=== PATIENT | female | born 1960 | race Caucasian/White ===

== ENCOUNTER 2017-12-20 19:16 | Emergency (ER) | payer BC ==
[~2017-12-20] VITALS: Ht 157.5 cm; Wt 86.2 kg
[2017-12-20 20:09] LABS: ABSOLUTE EOSINOPHILS 0.4 thou/uL (0.0-0.7); ABSOLUTE LYMPHOCYTES 2.3 thou/uL (0.8-5.3); ABSOLUTE MONOCYTES 0.5 thou/uL (0.0-1.2); ABSOLUTE NEUTROPHILS 5.5 thou/uL (1.6-8.1); BASOPHILS 0.3 %; EOSINOPHILS 4.6 %; HEMATOCRIT 43.2 % (37.0-47.0); HEMOGLOBIN 14.3 gm/dL (12.0-15.0); LYMPHOCYTES 25.8 %; MCHC 33.1 g/dL (28.0-37.0); MCV 84.5 fL (80.0-100.0); MONOCYTES 6.1 %; MPV 8.3 fl. (7.2-11.1); NUCLEATED RBCS 0 /100WBC; PLATELET COUNT* 218 thou/uL (150-400); POLYS 63.2 %; RBC 5.11 mil/uL (4.20-5.00); RDW-CV 14.4 % (10.5-14.5); WBC 8.7 thou/uL (4.0-11.0)
[2017-12-20 20:21] LABS: ANION GAP 9 mmol/L (7-16); BUN 13 mg/dL (7-18); CALCIUM 8.7 mg/dL (8.5-10.1); CHLORIDE 106 mmol/L (98-107); CO2 26 mmol/L (21-32); CREATININE 0.7 mg/dL (0.6-1.3); GLUCOSE 114 mg/dL (70-99); POTASSIUM 3.8 mmol/L (3.5-5.1); SODIUM 141 mmol/L (136-145)
[2017-12-20 20:32] LABS: ALBUMIN 3.9 g/dL (3.4-5.0); ALKALINE PHOSPHATASE 90 U/L (46-116); NT-PRO BRAIN NAT PEPTIDE 39 pg/mL (<300); SGOT 50 U/L (15-37); SGPT 70 U/L (30-65); TOTAL BILIRUBIN 0.6 mg/dL (<0.1-1.0); TOTAL PROTEIN 7.9 g/dL (6.4-8.2); TROPONIN-I LEVEL <0.06 ng/mL (<0.06)
[2017-12-20 20:57] LABS: URINE BILIRUBIN NEGATIVE (Negative); URINE BLOOD 3+ (Negative); URINE CLARITY SL CLOUDY; URINE COLOR RED; URINE GLUCOSE-RANDOM NEGATIVE (Negative); URINE KETONES NEGATIVE (Negative); URINE NITRITE-REFLEX NEGATIVE (Negative); URINE PROTEIN 1+ (Negative); URINE UROBILINOGEN 0.2 E.U./dl (0.2-1.0)
[2017-12-20 20:58] LABS: URINE LEUKOCYTES-REFLEX 2+ (Negative)
[2017-12-20 21:05] LABS: BACTERIA-REFLEX 1-9 Few /HPF (None Seen); CASTS None Seen /LPF (None Seen); CRYSTALS None Seen /LPF (None Seen); SQUAMOUS 0-3 Few /LPF (0-3); URINE RBC >20 Many /HPF (0-2); URINE WBC-REFLEX 0-5 Rare /HPF (0-5)
[2017-12-20] MEDS ORDERED: BYSTOLIC 5 MG5 M1 PO (21:08)
[2017-12-20 21:28] VITALS: BP 164/75
[2017-12-21 11:07] LABS: T3 UPTAKE 24 % (24-39)
--- NOTE | 2017-12-21 14:55 | EKG ---
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1960 Requested By: Jean Rodriguez Order Number: [id number] MD: Demond Bullock Measurements Intervals [place] Rate: 95 P: 31 MO: 172 QRS: -7 QRSD: 87 T: 35 QT: 385 QTc: 484 Interpretive Statements Sinus rhythm Probable left atrial enlargement Abnormal R-wave progression, early transition Left ventricular hypertrophy Borderline prolonged QT interval No previous ECG available for comparison Electronically Signed On 12-21-2017 14:54:51 CDT by Demond Bullock [email or web address] <ELECTRONICALLY SIGNED> By: Demond Bullock MD, [facility] 12/21/17 1454 40 40 Demond Bullock MD, FACC /EPI
== END 2017-12-20 21:29 | disposition home or self-care (01) ==
LOC: M.ERS 19:16
PROVIDERS: Emergency Medicine
DX: I10 Essential (primary) hypertension (principal); N39.0 Urinary tract infection, site not specified; Z88.8 Allergy status to other drugs, medicaments and biological substances; Z90.49 Acquired absence of other specified parts of digestive tract

== ENCOUNTER 2019-04-24 00:48 | Emergency (ER) | payer BC ==
[~2019-04-24] VITALS: Ht 160 cm; Wt 104.3 kg
[~2019-04-24 00:48] MED LIST: BYSTOLIC 5 MG5 M1 PO
[2019-04-24 01:33] LABS: HEMATOCRIT 42.4 % (37.0-47.0); HEMOGLOBIN 14.3 gm/dL (12.0-15.0); MCH 28.4 pg (26.0-34.0); MCHC 33.6 g/dL (28.0-37.0); MCV 84.5 fL (80.0-100.0); MPV 8.6 fl. (7.2-11.1); NUCLEATED RBCS 0 /100WBC; PLATELET COUNT* 248 thou/uL (150-400); RBC 5.02 mil/uL (4.20-5.00); WBC 11.5 thou/uL (4.0-11.0)
[2019-04-24] MEDS ORDERED: PROAIR HFA8.5 GM INH (01:39)
[2019-04-24] MEDS ORDERED: CLARITIN10 M3 PO (01:40)
[2019-04-24 01:41] LABS: APTT 26.2 Seconds (25.0-31.3)
[2019-04-24 01:42] LABS: CALCIUM 9.1 mg/dL (8.5-10.1); CREATININE 0.8 mg/dL (0.6-1.3); POTASSIUM 4.1 mmol/L (3.5-5.1)
[2019-04-24 02:13] LABS: ABSOLUTE BASOPHILS 0.1 thou/uL (0.0-0.2); ABSOLUTE EOSINOPHILS 0.1 thou/uL (0.0-0.7); ABSOLUTE LYMPHOCYTES 3.8 thou/uL (0.8-5.3); ABSOLUTE MONOCYTES 0.8 thou/uL (0.0-1.2); ABSOLUTE NEUTROPHILS 6.7 thou/uL (1.6-8.1); ANISOCYTOSIS Occasional; PLATELET ESTIMATE ADEQUATE
[2019-04-24 02:15] VITALS: BP 179/86
[2019-04-24 02:19] LABS: ALBUMIN 3.8 g/dL (3.4-5.0); MAGNESIUM 1.9 mg/dL (1.8-2.4); TOTAL BILIRUBIN 0.4 mg/dL (<0.1-1.0)
--- NOTE | 2019-04-24 15:02 | EKG ---
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1960 Requested By: Herb Cuellar Order Number: [id number] MD: Ayden Amezcua Measurements Intervals [place] Rate: 63 P: -6 TX: 125 QRS: 14 QRSD: 97 T: 56 QT: 419 QTc: 429 Interpretive Statements Sinus rhythm Abnormal R-wave progression, early transition Compared to ECG 12/20/2017 19:41:41 Left ventricular hypertrophy no longer present Electronically Signed On 04-24-2019 15:02:20 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
== END 2019-04-24 02:17 | disposition home or self-care (01) ==
LOC: M.ERS 00:48
PROVIDERS: Family Medicine
DX: R06.00 Dyspnea, unspecified (principal); Z88.8 Allergy status to other drugs, medicaments and biological substances; Z90.49 Acquired absence of other specified parts of digestive tract

== ENCOUNTER → 2019-05-30 | Outpatient (CLI) | payer BC ==
[~2019-05-30] MED LIST changes: +CLARITIN10 M3 PO; +PROAIR HFA8.5 GM INH
[2019-05-30 12:56] LABS: BASOPHILS 0.3 %; NUCLEATED RBCS 0 /100WBC
[2019-05-30 13:02] LABS: ABSOLUTE EOSINOPHILS 0.3 thou/uL (0.0-0.7); ABSOLUTE LYMPHOCYTES 1.8 thou/uL (0.8-5.3); ABSOLUTE MONOCYTES 0.3 thou/uL (0.0-1.2); ABSOLUTE NEUTROPHILS 4.3 thou/uL (1.6-8.1); EOSINOPHILS 3.8 %; HEMATOCRIT 43.6 % (37.0-47.0); HEMOGLOBIN 14.7 gm/dL (12.0-15.0); LYMPHOCYTES 27.4 %; MCH 28.6 pg (26.0-34.0); MCHC 33.7 g/dL (28.0-37.0); MONOCYTES 4.6 %; MPV 8.5 fl. (7.2-11.1); PLATELET COUNT* 221 thou/uL (150-400); POLYS 63.9 %; RBC 5.13 mil/uL (4.20-5.00); RDW-CV 14.6 % (10.5-14.5); WBC 6.7 thou/uL (4.0-11.0)
[2019-05-30 13:13] LABS: ALKALINE PHOSPHATASE 86 U/L (46-116); ANION GAP 11 mmol/L (7-16); BUN 9 mg/dL (7-18); CALCIUM 8.9 mg/dL (8.5-10.1); CHLORIDE 107 mmol/L (98-107); CHOLESTEROL 208 mg/dL (<200); CO2 26 mmol/L (21-32); CREATININE 0.7 mg/dL (0.6-1.3); GLUCOSE 94 mg/dL (70-99); HDL CHOLESTEROL 46 mg/dL (>40); LDL CHOLESTEROL 147 mg/dL (<100); SERUM ASSESSMENT Clear; SGOT 51 U/L (15-37); SGPT 69 U/L (30-65); SODIUM 144 mmol/L (136-145); TC:HDL 4.5 Ratio (Not establshd); TOTAL PROTEIN 7.7 g/dL (6.4-8.2); TRIGLYCERIDE 79 mg/dL (<150); TROPONIN-I LEVEL <0.06 ng/mL (<0.06); VLDL 16 mg/dL (<40)
== END ==
LOC: M.CT 11:00
PROVIDERS: Family Medicine
DX: J98.4 Other disorders of lung (principal); K76.0 Fatty (change of) liver, not elsewhere classified